=== PATIENT | male | born 1975 | race Caucasian/White ===

== ENCOUNTER 2016-09-23 15:11 | Emergency (ER) | payer MEDICARE ==
--- NOTE | ~2016-09-23 | CR72 ---
[facility]. [facility] A Service of [facility] RADIOLOGY TEXT RESULTS PATIENT: STEVIE RUGGIERO LOCATION: SED : 73 UNIT #: [id number] AGE: [address]: Deuce Moscoso MD SEX: M ORDER DR: [id number] [address] [address] [id number] E MR#: [id number] Acc #: [id number] NAME: STEVIE RUGGIERO : 1975 SEX: M STUDY DATE/TIME: 09/23/2016 15:37 UNIT: SED ROOM: STUDY DESCRIPTION: CR Chest Single View Portable Attending Physician: Deuce Moscoso M.D. Ordering Physician: Deuce Moscoso M.D. Primary Care Physician: Vani Siddiqi A.P.R.N. MEDICAL IMAGING REPORT This report is preliminary unless electronic signature is present. EXAM Portable chest HISTORY Dyspnea starting today. Shortness of air. COMPARISON 02/18/2011 FINDINGS This portable view of the chest shows the heart size and vascularity are normal and the lungs are clear and the bones are unremarkable. IMPRESSION No active disease. Dictated by... Eugene Bojorquez M.D. THIS IS AN ELECTRONICALLY VERIFIED REPORT Eugene Bojorquez M.D. at 09/24/2016 1:00 PM Rony TD: 09/23/2016 17:04 JOB #: [id number] MEDICAL IMAGING REPORT Page 1 of 1
[~2016-09-23 15:11] MED LIST: ACCUPRIL PO; ALBUTEROL17 GM INH; BACTRIM DS TABL1 TAB PO; BENAZEPRIL PO; BENICAR HCT 40-1 TAB PO; BENICAR5 MG; BENTYL20 MG PO; CIPRO PO; HYCODAN60 ML 5MG/ PO; IBUPROFEN PO; LORTAB 2.5/5001 TAB PO; LOSARTAN POTASS50 MG PO; LOTENSIN; MOBIC PO; MORPHINE SULFAT15 MG PO; MUCINEX DM1 TAB.SR . PO; NEURONTIN PO; OXYCODONE HCL30 MG PO; PERCOCET PO; PHENERGAN PO; PREDNISONE PO; ROBAXIN PO; SYMBICORT INH; VICODIN 5/500 T1 TAB PO; VOLTAREN75 MG PO; ZITHROMAX PO; ZYRTEC10 M2 PO
[2016-09-23] MEDS ORDERED: OXYCONTIN (15:21)
[2016-09-23] MEDS ORDERED: MS CONTIN PO (15:21)
[2016-09-23] MEDS ORDERED: B/P MED (15:22)
[2016-09-23 15:59] LABS: BASOPHIL# 0.1 X10e3 (0-0.3); BASOPHIL% 1.4 % (0-2.5); EOSINOPHIL# 0.1 X10e3 (0-0.7); HEMATOCRIT 48.1 % (38.0-50.0); HEMOGLOBIN 16.4 gm/dL (13.0-16.0); LYMPHOCYTE# 2.3 X10e3 (1.0-3.5); LYMPHOCYTE% 27.3 % (17.0-45.0); MEAN CORPUSCULAR HEMOGLOBIN 29.6 PG (28-34); MEAN PLATELET VOLUME 8.1 FL (6.5-11.5); MONOCYTE# 0.6 X10e3 (0-1.0); MONOCYTE% 7.1 % (3.0-12.0); NEUTROPHIL# 5.4 X10e3 (1.5-7.1); NEUTROPHIL% 63.2 % (40-75); PLATELET COUNT 195 X10e3 (140-420); RED BLOOD COUNT 5.53 X10e (3.90-5.60); RED CELL DISTRIBUTION WIDTH 14.1 % (11.0-15.5); WHITE BLOOD COUNT 8.6 X10e3 (4.0-10.5)
[2016-09-23 16:05] LABS: DIFF IND NO
[2016-09-23 16:20] LABS: ALBUMIN SERUM 4.3 g/dL (3.5-5.0); ALKALINE PHOSPHATASE 72 U/L (32-92); ALT (SGPT) 27 U/L (10-40); AST (SGOT) 21 U/L (10-42); BILIRUBIN,TOTAL 0.5 mg/dL (0.2-2.0); BLOOD UREA NITROGEN 11 mg/dL (9-23); CALCIUM SERUM 8.9 mg/dL (8.4-10.2); CARBON DIOXIDE 24 mmol/L (22-31); CHLORIDE 100 mmol/L (100-111); GLOM FILT RATE Estimated 93.1 mL/min (>60); GLUCOSE FASTING 135 mg/dL (70-110); POTASSIUM 3.5 mmol/L (3.5-5.1); PROTEIN TOTAL SERUM 7.6 g/dL (6.0-8.3); SODIUM 133 mmol/L (135-145)
[2016-09-23 16:39] LABS: BILIRUBIN, DIRECT <0.1 mg/dL (0.0-0.2); BILIRUBIN,INDIRECT 0.4 mg/dL (0.0-0.9)
== END 2016-09-23 18:15 | disposition home or self-care (01) ==
LOC: SED 15:11
PROVIDERS: Emergency Medicine
DX: J44.1 Chronic obstructive pulmonary disease with (acute) exacerbation (principal); Z87.09 Personal history of other diseases of the respiratory system; Z88.6 Allergy status to analgesic agent; Z79.891 Long term (current) use of opiate analgesic; Z79.899 Other long term (current) drug therapy
CPT/HCPCS: 36415; 71010; 80048; 80076; 85025; 94640; 99285